=== PATIENT | male | born 1960 | race Caucasian/White ===

== ENCOUNTER 2016-05-04 16:01 | Inpatient (IN) ==
[2016-05-04] MEDS ORDERED: DIPH/TET/ACEL PERT BOOSTER VACCINE 0.5 ML VIAL IM ONE ×2 (18:06→18:48)
[2016-05-04] MEDS ORDERED: MORPHINE 2 MG/1 ML SYRINGE IV STA (18:06)
[2016-05-04] MEDS ORDERED: CEFTAROLINE 600 MG in SODIUM CHLORIDE 0.9% 100 ML IV STA (18:06)
[2016-05-04] MEDS ORDERED: SODIUM CHLORIDE 0.9% 500 ML IV STA (18:06)
--- NOTE | 2016-05-04 18:08 | Emergency Department Note ---
Sajan Joy Brooke, am scribing for, and in the presence of, Inocencio Otero MD 18 :07. Branden Joy Charles R, MD, personally performed the services described in this documentation, ascribed by Elham Moeller in my presence, and it is both accurate and complete 808 . Arrival - Arrival Chief Complaint: Abscess Stated Complaint: knot on arm ED Nursing Triage Note: reports a sore that came on his right wrist yesterday and today is more swollen with streaks running up his right arm. Mode of Arrival: Ambulatory Limitations: No Limitations Source: Patient, RN Notes Reviewed Time Seen by Provider: 05/04/16 17:56 - History of Present Illness HPI Narrative: Patient is a 56 year old male who presents to the ED with c/o abscess to right wrist. Patient says a "bump" appeared two days ago and he says it had a "yellow " head. He says over time the "bump" has worsened and is now erythematous, swollen, and painful. The right forearm has red streaks going up it and he says it is painful. Patient says he has also had a fever for the past two days but says he has also had some congestion. Patient has PMHx of HTN. Onset (ago): day(s) (2) Allergies/Adverse Reactions: Allergies Allergy/AdvReac Type Severity Reaction Status Date / Time No Known Allergies Allergy Unverified 05/04/16 17:15 Home Medications: Home Medications Medication Instructions Recorded Confirmed Type Lisinopril/Hydrochlorothiazide 1 each PO DAILY 05/04/16 05/04/16 History [Lisinopril-Hctz 20-25 mg Tab] Review of System - Review of System 12 point system: reviewed and no additional remarkable complaints except as stated - Review of System Constitutional: Present: fever Head/Ears/Nose/Throat: Present: other (congestion) Respiratory: Absent: respiratory distress Cardiovascular: Absent: chest pain Musculoskeletal: Present: arm pain (right) Skin: Present: other (possible abscess to right wrist that is erythematous, swollen, and painful). Absent: rash Medical,Surgical,& Family Hx - Medical History Cardio: History of: Hypertension - Social History Smoking Status: Never smoker Exam Vital Signs: Vital Signs Temperature 98.4 F 05/04/16 17:11 Pulse Rate 70 05/04/16 17:11 Respiratory Rate 18 05/04/16 17:11 Blood Pressure 172/98 05/04/16 17:11 O2 Sat by Pulse Oximetry 98 05/04/16 17:11 - General General appearance: alert, in no apparent distress - Head Head exam: Present: atraumatic, normocephalic - Eye Eye exam: Present: normal appearance, PERRL, EOMI - ENT ENT exam: Present: normal exam - Neck Neck exam: Present: normal inspection - Chest Chest inspection: Present: normal inspection, symmetric chest wall rise - Respiratory Respiratory exam: Present: normal lung sounds bilaterally - Cardiovascular Cardiovascular exam: Present: regular rate, normal rhythm, normal heart sounds - Abdominal Exam Abdominal exam: Present: soft. Absent: distention, tenderness - Extremities Exam Extremities exam: Present: normal inspection - Back Exam Back exam: Present: normal inspection - Neurological Exam Neurological exam: Present: alert, oriented X3 - Psychiatric Psychiatric exam: Present: normal affect, normal mood - Skin Skin exam: Present: warm, dry, other (area of cellulitis to right wrist with erythema, edema, and pain but no purulent drainage. Red streaks going up right forearm.) Course - Consultations Consultation #1: Hospitalist will admit patient Time: 18:32 Disposition Clinical Impression: Cellulitis, Abscess of skin or subcutaneous tissue Case discussed with: patient Disposition: Still a Patient Condition: Stable Time of Disposition: 18:33
[2016-05-04] MEDS ORDERED: CEFTAROLINE 600 MG VIAL IV ONE (18:48)
[2016-05-04] MEDS ORDERED: MORPHINE 2 MG/1 ML SYRINGE ONE (18:48)
[2016-05-04 18:54] LABS: Basophils % 0.2 % (0.0-0.8); Eosinophils # 0.1 10*3/uL (0.0-0.87); Eosinophils % 1.3 % (0.00-10.9); Hematocrit 43.8 VOL% (42.0-52.0); Hemoglobin 14.5 GM/DL (14.0-18.0); Immature Granulocytes % 0.3 %; Immature Granulocytes Absolute 0.03 #; Lymphocytes # 1.7 10*3/uL (1.4-4.0); Lymphocytes % 18.1 % (21.2-54.2); Mean Corpuscular HGB Conc 33.1 GM/DL (32-36); Mean Corpuscular Hemoglobin 29 PG (27-34); Mean Corpuscular Volume 88.1 FL (87-102); Monocytes % 11.1 % (1.7-12.7); Neutrophils # 6.4 10*3/uL (1.4-7.4); Platelet Count 163 10*3/uL (130-400); Red Blood Count 4.97 10*6/uL (3.8-5.5); Red Cell Distribution Width 12.6 % (9.3-17.3); White Blood Count 9.3 10*3/uL (4.5-13.71)
[2016-05-04] MEDS ORDERED: ACETAMINOPHEN 325 MG TABLET PO PRN (19:10)
[2016-05-04] MEDS ORDERED: MORPHINE 2 MG/1 ML SYRINGE IV PRN (19:10)
[2016-05-04] MEDS ORDERED: ZALEPLON 5 MG CAPSULE PO PRN (19:10)
[2016-05-04] MEDS ORDERED: ONDANSETRON 4 MG/2 ML VIAL IV PRN (19:10)
[2016-05-04] MEDS ORDERED: DOCUSATE SODIUM 100 MG CAPSULE PO PRN (19:10)
[2016-05-04 19:13] LABS: Calcium 7.9 MG/DL (8.5-10.1); Osmolality,Calculated 283.1 MOS/KG (273-304); Potassium 3.9 MMOL/L (3.5-5.1)
--- NOTE | 2016-05-04 19:16 | Hospitalist History & Physical ---
<Purnima Carney - Last Filed: 05/04/16 19:13> Assessment and Plan - Time spent with patient Time spent with patient: Greater than 30 minutes (due to assessment, plan and documentation) (1) Abscess of skin or subcutaneous tissue Status: Acute Assessment and plan: teflaro IV BID morphine 1 mg IV q4 hrs for severe pain wound care Current Visit: Yes (2) Cellulitis Status: Acute Current Visit: Yes (3) HTN (hypertension) Status: Acute Current Visit: Yes History of Present Illness Chief complaint: abscess to right hand History of present illness: Mr. Amanda is a 56 year old male who presents to the ED this evening with an abscess to his right hand. He states that he noticed a "bump" arise within the past day or so. Denies any bites. He works at [employer]. He states that he tried to pop the abscess, and this worsened. His entire right hand is swollen, reddened and warm to touch with streaking up his arm. There is a large purple area that is draining serosanginous fluid. He is HTN, but denies any other medical problems such as DM, CAD, Kidney problems. He has received a dose of Teflaro in the ED, along with pain medications. He lives at home with his and typically functions independently. Further plan and addendum to follow by Dr. Frankie Poe. Home Medications Medication Instructions Recorded Confirmed Type Lisinopril/Hydrochlorothiazide 1 each PO DAILY 05/04/16 05/04/16 History [Lisinopril-Hctz 20-25 mg Tab] Allergies Allergy/AdvReac Type Severity Reaction Status Date / Time No Known Allergies Allergy Unverified 05/04/16 17:15 Medical,Surgical,& Family Hx - Medical History Cardio: History of: Hypertension - Social History Smoking Status: Never smoker Frequency of Alcohol Use: None Type of Drug Use: None Marital Status: Lives With:: Spouse Functional capacity: independent ambulation - Constitutional Constitutional: Absent: chills, fatigue, fever(s) - EENT Eyes: Absent: blurry vision, diplopia Ears: Absent: decreased hearing, tinnitus Nose, mouth and throat: Absent: dysphagia, headache(s) - Cardiovascular Cardiovascular: Absent: chest pain at rest, dyspnea on exertion - Respiratory Respiratory: Absent: cough, dyspnea, hemoptysis - Gastrointestinal Gastrointestinal: Absent: abdominal pain, melena, nausea, vomiting - Genitourinary Genitourinary: Absent: difficulty urinating, dysuria, hematuria - Musculoskeletal Musculoskeletal: Absent: arthralgias, back pain - Neurological Neurological: Absent: confusion, dizziness - Psychiatric Psychiatric: Absent: anxiety, confusion, depression - Endocrine Endocrine: Absent: cold intolerance, heat intolerance - Hematologic/Lymphatic Hematologic/Lymphatic: Absent: easy bleeding, easy bruising Exam - Constitutional Vitals: Period Temp Pulse Resp BP Sys/Mackey Pulse Ox Last 24 Hr 98.4 F 70 18 172/98 98 General appearance: normal weight, no acute distress - Head Head exam: Present: normal inspection, normocephalic - Eye Eye exam: Present: EOMI. Absent: scleral icterus Pupils: Present: LOR, normal accommodation - ENT ENT exam: Present: normal exam, normal oropharynx - Neck Neck exam: Present: normal inspection. Absent: lymphadenopathy - Respiratory Respiratory exam: Present: clear to auscultation bilaterally. Absent: accessory muscle use - Cardiovascular Cardiovascular exam: Present: regular rate and rhythm. Absent: carotid bruit - GI/Abdominal GI/Abdominal exam: Present: normal bowel sounds, soft. Absent: tenderness - Extremities Exam Extremities exam: Present: normal inspection. Absent: edema - Back Exam Back exam: Present: normal inspection. Absent: muscle spasm - Neurological Exam Neurological exam: Present: alert, oriented X3 - Psychiatric Psychiatric exam: Present: normal affect, normal mood - Skin Skin exam: Present: normal color, warm, dry, intact Results - Labs CBC & BMP: 05/04/16 18:40 Lab Results: I have reviewed the past 24 hour labs <Frankie Poe - Last Filed: 05/04/16 22:36> History of Present Illness History of present illness: Mr. Amanda is a 56 year old male Exam - Constitutional Vitals: Period Temp Pulse Resp BP Sys/Mackey Pulse Ox Last 24 Hr 100.7 F 86-95 18-20 134-142/83-89 95-96 Results - Labs CBC & BMP: 05/04/16 18:40 05/04/16 18:40
[2016-05-04] MEDS: CEFTAROLINE 600 MG in SODIUM CHLORIDE 0.9% 100 ML IV SCH (22:08)
[2016-05-04] MEDS: SODIUM CHLORIDE 0.9% 1,000 ML IV SCH (22:10)
[2016-05-04] MEDS: VANCOMYCIN INJ 1,500 MG in SODIUM CHLORIDE 0.9% 500 ML IV SCH (22:26)
[2016-05-05 07:03] LABS: Basophils % 0.2 % (0.0-0.8); Eosinophils # 0.1 10*3/uL (0.0-0.87); Eosinophils % 0.5 % (0.00-10.9); Hematocrit 40.7 VOL% (42.0-52.0); Hemoglobin 13.3 GM/DL (14.0-18.0); Immature Granulocytes % 0.4 %; Immature Granulocytes Absolute 0.04 #; Lymphocytes # 1.3 10*3/uL (1.4-4.0); Lymphocytes % 11.6 % (21.2-54.2); Mean Corpuscular HGB Conc 32.7 GM/DL (32-36); Mean Corpuscular Hemoglobin 29 PG (27-34); Mean Corpuscular Volume 88.5 FL (87-102); Monocytes # 1.1 10*3/uL (0.11-0.8); Monocytes % 9.6 % (1.7-12.7); Neutrophils # 8.6 10*3/uL (1.4-7.4); Neutrophils % 77.7 % (38.7-73.9); Platelet Count 156 10*3/uL (130-400); Red Cell Distribution Width 12.4 % (9.3-17.3)
[2016-05-05 07:29] LABS: Albumin 3.1 G/DL (3.4-5.0); Calcium 7.8 MG/DL (8.5-10.1); Osmolality,Calculated 283.1 MOS/KG (273-304); Potassium 3.9 MMOL/L (3.5-5.1); Total Protein 6.4 G/DL (6.4-8.3)
[2016-05-05] MEDS: PANTOPRAZOLE 40 MG TABLET PO SCH (09:32)
[2016-05-05] MEDS: LISINOPRIL/HCTZ 20-25 MG TABLET PO SCH (09:32)
[2016-05-05] MEDS: CEFTAROLINE 600 MG in SODIUM CHLORIDE 0.9% 100 ML IV SCH ×2 (09:37→20:40)
[2016-05-05] MEDS: VANCOMYCIN INJ 1,500 MG in SODIUM CHLORIDE 0.9% 500 ML IV SCH ×2 (12:26→22:08)
--- NOTE | 2016-05-05 13:33 | Hospitalist Progress Note ---
Assessment and Plan (1) Cellulitis Status: Acute Assessment and plan: The patient has a carbuncle in the right wrist with surrounding cellulitis. Continuing IV antibiotics with Teflaro and vancomycin. Request general surgery consultation for possibility of incision and drainage of the carbuncle. Current Visit: Yes Qualifiers: Site of cellulitis of extremity: upper extremity Laterality: right (2) Abscess of skin or subcutaneous tissue Status: Acute Current Visit: Yes (3) HTN (hypertension) Status: Acute Current Visit: Yes Hospitalist: Subjective Interval history: The patient is admitted to the hospital with a carbuncle on the right external wrist. The patient had angiitis at the time of admission and this is improving. The patient has less generalized arm pain now. Exam - Constitutional Vitals: Period Temp Pulse Resp BP Sys/Mackey Pulse Ox Last 24 Hr 98.7 F-100.7 F 76-95 17-20 117-142/69-89 95-97 Exam: The patient's right wrist has a carbuncle of about 6 cm in diameter. Cellulitis about the forearm is receiving towards the carbuncle and is being more heaped up today. It was opened in the emergency room and apparently some pus was drained. Culture does not grow a dominant organism yet. Chest is clear, heart has regular rate and rhythm, and abdomen soft. Results - Labs CBC & BMP: 05/05/16 06:12 05/05/16 06:12 Lab Results: I have reviewed the past 24 hour labs
[2016-05-05] MEDS ORDERED: LIDOCAINE 1% 20 ML VIAL MISC INJ ONE (15:47)
[2016-05-05] MEDS: SODIUM CHLORIDE 0.9% 1,000 ML IV SCH ×2 (16:10→22:14)
--- NOTE | 2016-05-05 16:14 | Event Note ---
The patient has an abscess on his right wrist lateral aspect. He thinks that it started as what appeared to be a pimple about 2-3 days ago gradually increased in size and redness. Redness is really localized wrist he has had a small amount of swelling in his pain no pain. He has no pain with extension or flexion of his fingers. The abscess itself was about 2 cm in diameter we have indeed it in the room operative note.
--- NOTE | 2016-05-05 16:16 | Operative Note ---
Date of procedure: 05/05/16 Pre-op diagnosis: complex abscess right wrist cellulitis Post-op diagnosis: same Procedure: Incision and drainage of complex abscess right wrist 2 cm Findings and technique: After informed consent was obtained the patient's right wrist over the dorsal lateral aspect was prepped and draped in usual sterile fashion and local anesthesia infiltrated widely around the abscess. A transverse incision was made 1.5 cm in length unroofing an abscess cavity which had necrotic subcutaneous tissue within it. This was cultured. The contents of the cavity were digitally explored and irrigated and then packed with sterile gauze. A bulky dressing was applied. He appeared to tolerate the procedure well. Anesthesia: local Surgeon / Physician: Lavelle Yee III. Estimated blood loss: minimal Specimens: other (cultures) Condition: stable Disposition: no change Results - Labs CBC & BMP: 05/05/16 06:12 05/05/16 06:12 Discharge Plan - Discharge Medications No Action Lisinopril/Hydrochlorothiazide [Lisinopril-Hctz 20-25 mg Tab] 1 each PO DAILY - Follow Up or Referral - Forms/Instructions
[2016-05-06] MEDS: PANTOPRAZOLE 40 MG TABLET PO SCH (08:14)
[2016-05-06] MEDS: LISINOPRIL/HCTZ 20-25 MG TABLET PO SCH (08:14)
[2016-05-06] MEDS: CEFTAROLINE 600 MG in SODIUM CHLORIDE 0.9% 100 ML IV SCH ×2 (08:33→20:29)
[2016-05-06] MEDS: SODIUM CHLORIDE 0.9% 1,000 ML IV SCH ×2 (09:39→10:42)
--- NOTE | 2016-05-06 09:40 | Event Note ---
He feels better. He has less pain. There is less erythema over the dorsum of his hand. His hand has no tenderness to flexion or extension. I would still continue IV antibiotics since he still has some cellulitis. His cultures are growing gram-positive cocci as expected.
--- NOTE | 2016-05-06 10:11 | Hospitalist Progress Note ---
Assessment and Plan (1) Cellulitis Status: Acute Assessment and plan: The patient has a carbuncle in the right wrist with surrounding cellulitis. Continuing IV antibiotics with Teflaro and vancomycin. Dr. Yee debrided the carbuncle yesterday. We continue IV antibiotics and dressing changes. Current Visit: Yes Qualifiers: Site of cellulitis of extremity: upper extremity Laterality: right (2) Abscess of skin or subcutaneous tissue Status: Acute Current Visit: Yes (3) HTN (hypertension) Status: Acute Current Visit: Yes Hospitalist: Subjective Interval history: The patient has less pain in the hand and arm today. Exam - Constitutional Vitals: Period Temp Pulse Resp BP Sys/Mackey Pulse Ox Last 24 Hr 97.9 F-99 F 71-75 16-20 130-149/73-88 94-97 Exam: The patient's right wrist has a carbuncle of about [address] Yee was able to debride the abscess yesterday. Culture report shows gram- positive cocci Chest is clear, heart has regular rate and rhythm, and abdomen soft. Results - Labs CBC & BMP: 05/05/16 06:12 05/05/16 06:12 Lab Results: I have reviewed the past 24 hour labs
[2016-05-06] MEDS: VANCOMYCIN INJ 1,500 MG in SODIUM CHLORIDE 0.9% 500 ML IV SCH ×2 (10:42→22:08)
[2016-05-07] MEDS: SODIUM CHLORIDE 0.9% 1,000 ML IV SCH ×2 (01:05→06:14)
[2016-05-07] MEDS: PANTOPRAZOLE 40 MG TABLET PO SCH (09:22)
[2016-05-07] MEDS: LISINOPRIL/HCTZ 20-25 MG TABLET PO SCH (09:22)
[2016-05-07] MEDS: CEFTAROLINE 600 MG in SODIUM CHLORIDE 0.9% 100 ML IV SCH (09:38)
[2016-05-07] MEDS: VANCOMYCIN INJ 1,500 MG in SODIUM CHLORIDE 0.9% 500 ML IV SCH (10:45)
--- NOTE | 2016-05-07 11:10 | Event Note ---
He feels much better and has no pain. The edema of his hand has completely subsided. His wound looks okay and is opened up well. I have given him wound care instructions as an outpatient and this will need to be packed twice daily. 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 He will probably need to be off of work this next week. I'll be happy to see him back again in the clinic in the next week for follow-up. His cultures are growing MRSA as expected.
--- NOTE | 2016-05-07 11:27 | Discharge Summary ---
Hospital Course - Hospital Course Hospital Course: The patient was admitted to the hospital with right wrist dorsal aspect carbuncle. The patient had IV antibiotics with vancomycin Teflaro. Angiitis in the elbow resolved the patient had debridement of the carbuncle. The patient grew MRSA from the wound. The patient will be discharged home on Bactrim for one week and follow-up at wound care clinic. 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 - Time spent with patient Time with patient DS: Greater than 30 minutes Diagnosis - Discharge Diagnosis (1) Cellulitis Status: Resolved (2) Abscess of skin or subcutaneous tissue Status: Resolved (3) HTN (hypertension) Status: Chronic Discharge Plan - Discharge Data Disposition: Disch To Home/Self Care Condition at Discharge: Stable Discharge Diet: advance to your usual diet Activity: other (avoid work at the [employer] until the wound is resolved) Hygiene: may shower - Discharge Medications New Sulfameth/Trimeth 800-160 Tab [Bactrim DS Tab] 1 tablet PO BID #20 tablet Continue Lisinopril/Hydrochlorothiazide [Lisinopril-Hctz 20-25 mg Tab] 1 each PO DAILY #100 tablet - Follow Up or Referral Follow Up: Lavelle Yee III., MD [Physician] - 5 Days - Forms/Instructions Exam - Constitutional Vitals: Period Temp Pulse Resp BP Sys/Mackey Pulse Ox Last 24 Hr 97.5 F-99.0 F 56-72 18-20 111-146/61-77 93-97 Discharge Results Procedures and tests throughout hospitalization: Pending Orders 05/05/16 17:22 Wound Culture Routine Labs on day of discharge: Preliminary micro results at discharge 05/05/16 17:22 Wound Culture - Preliminary Wrist - Right Gram Positive Cocci DS: Provider Date of admission: 05/04/16 19:10 Primary care physician: . No PCP Attending physician on admission: Frankie Poe MD Consults: 05/04/16 19:19 Consult to Pharmacy [CONS] Routine Reason for Pharmacy Consult: Adjust Meds Renal Funct 05/04/16 21:27 Consult to Pharmacy [CONS] Routine Reason for Pharmacy Consult: Dose/Manage Vancomycin 05/05/16 13:30 Consult to Physician [CONS] Routine Comment: carbuncle right wrist Consulting Provider: Lavelle Yee III. Consulting Provider Notified: Yes When should Consulting Provider be notified: Now Person Notified: primo called Date Notified: 05/05/16 Time Notified: 14:39 Discharging clinician: Frankie Poe MD
[2016-05-07 13:28] VITALS: BP 134/76
== END 2016-05-07 13:21 | disposition home or self-care (01) | DRG 603 ==
LOC: N.ED 16:01 → N.EDINP 19:10 → N.3E 20:48
PROVIDERS: ADMIT Internal Medicine; ATTEND Internal Medicine